=== PATIENT | male | born 2000 | race Caucasian/White ===

== ENCOUNTER 2024-03-12 18:36 | Emergency (ER) | payer MEDICAID ==
[~2024-03-12] VITALS: Ht 177.8 cm; Wt 76.8 kg
[~2024-03-12 18:36] MED LIST: NICO-731 TOP; TEMA7.5C2 PO
[2024-03-12] MEDS ORDERED: levetiracetam inj 1,000 MG in normal saline 100ml IV soln 100 ML IV ONE (19:15)
[2024-03-12] MEDS: levetiracetam-NS 1000mg/100ml 100 ML IV ONE (19:29)
[2024-03-12 19:39] LABS: BASOPHILS % (AUTO) 0.1 % (0-1); EOSINOPHILS % (AUTO) 0.3 % (0-6); HEMATOCRIT 44.9 % (42.0-52.0); HEMOGLOBIN 15.2 g/dl (14.0-17.9); LYMPHOCYTES # (AUTO) 1.2 X10'3 (1.1-4.8); LYMPHOCYTES % (AUTO) 10.1 % (21-51); MEAN CORPUSCULAR HEMOGLOBIN 30.5 PG (27.0-31.0); MEAN CORPUSCULAR VOLUME 89.7 FL (78-98); MEAN PLATELET VOLUME 8.6 FL (7.4-10.4); MONOCYTES # (AUTO) 0.4 X10'3 (0-0.9); MONOCYTES % (AUTO) 3.7 % (2-12); NEUTROPHILS # (AUTO) 10.1 X10'3 (1.8-7.7); NEUTROPHILS % (AUTO) 85.8 % (42-75); PLATELET COUNT 222 X10'3 (140-440); RED CELL DISTRIBUTION WIDTH 12.8 % (11.5-14.5); WHITE BLOOD COUNT 11.8 X10'3 (4.5-11.0)
[2024-03-12] MEDS: acetaminophen 1,000mg/100ml IV 100 ML IV ONE (19:49)
[2024-03-12 19:53] LABS: ALBUMIN 4.3 G/DL (3.4-5.0); ANION GAP 13 (8-16); BLOOD UREA NITROGEN 12 MG/DL (7-18); BUN/CREATININE RATIO 10.7 (10.0-20.0); CALCIUM 8.9 MG/DL (8.5-10.1); CHLORIDE 105 MMOL/L (99-107); CREATININE 1.12 MG/DL (0.60-1.10); GLUCOSE 142 MG/DL (70-104); MAGNESIUM 2.3 MG/DL (1.5-2.4); SODIUM 137 MMOL/L (135-145); TOTAL CARBON DIOXIDE 18.7 MMOL/L (24-32); eCRCL 108 ML/MIN; eGFR 83 ML/MIN
[2024-03-12 20:01] LABS: POTASSIUM 4.8 MMOL/L (3.5-5.1)
[2024-03-12] MEDS: proCHLORperazine 10 MG/2 ml inj IV ONE (20:06)
[2024-03-12] MEDS: normal saline 1000ml 1,000 ML IV ONE (20:42)
[2024-03-12 22:20] LABS: BILIRUBIN,URINE NEGATIVE (Neg); CLARITY,URINE CLEAR (Clear); COLOR,URINE YELLOW (Yellow); GLUCOSE, URINE NEGATIVE (Neg); KETONES,URINE >=80 mg/dl (Neg); LEUKOCYTE ESTERASE ,URINE NEGATIVE (Neg); NITRITES, URINE NEGATIVE (Neg); OCCULT BLOOD,URINE TRACE-INTACT (Neg); PROTEIN,URINE NEGATIVE (Neg); UROBILINOGEN,URINE 0.2 E.U/dL (0.2-1.0)
[2024-03-12 22:21] LABS: UA COLLECTION TYPE VOIDED
[2024-03-12] MEDS ORDERED: LEVE750T6 PO (22:27)
[2024-03-12 22:34] LABS: BACTERIA,URINE FEW /HPF (Neg); MUCUS STRANDS MODERATE /LPF (Neg); RBC,URINE 0-2 /HPF (0-2); RENAL CELLS, URINE FEW /HPF; SQUAMOUS EPITHELIAL CELL,UR FEW /LPF (FEW); WBC,URINE 0-4 /HPF (0-4)
[2024-03-12 22:38] VITALS: BP 117/69; PULSE 76; RESP 12; TEMP 98.7; O2SAT 99
== END 2024-03-12 22:40 | disposition home or self-care (01) ==
LOC: ER 18:36
DX: G40.89 Other seizures (principal); Z79.899 Other long term (current) drug therapy; Z20.822 Contact with and (suspected) exposure to COVID-19
CPT/HCPCS: 36415; 80048; 81001; 83735; 84145; 85025; 87811; 93005; 96361; 96365; 96368; 96375; 99285; J0131; J0780; J1953; J7030